=== PATIENT | female | born 2000 | race Caucasian/White ===

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

== ENCOUNTER 2024-11-15 14:51 | Outpatient (CLI) | payer MEDICAID, SELFPAY ==
[2024-11-15 15:32] VITALS: BMI 41.0
[2024-11-15 15:35] VITALS: BP 127/64; PULSE 88
[2024-11-15 15:36] VITALS: PULSE 93; O2SAT 99
[2024-11-15 15:37] VITALS: BP 127/94; PULSE 88; RESP 16; TEMP 36.8; O2SAT 99
[2024-11-15 17:16] LABS: Mucous, Urine 0 SEEN /hpf (<or=2+)
[2024-11-15 17:18] LABS: Absolute Lymphocyte Count 2.83 X10^3/uL (0.83-4.51); Absolute Neutrophil Count 7.4 X10^3/uL (2.0-7.7); Basophil# 0.04 X10^3/uL; Basophil% 0.4 % (0-1); Eosinophil# 0.16 X10^3/uL; Eosinophils% 1.4 % (0-5); Hematocrit 32.4 % (37-47); Hemoglobin 10.8 g/dL (12.0-15.0); Lymphocyte # 2.83 X10^3/ul (0.83-4.51); Lymphocyte % 25.5 % (19-41); Mean Corp Hgb Conc 33.3 g/dL (32-36); Mean Corpuscular Hgb 30.8 pg (27.0-32.0); Mean Corpuscular Volume 92.3 fL (81-99); Mean Platelet Vol. 9.9 fl (6.2-12.0); Monocyte# 0.59 X10^3/uL; Monocyte% 5.3 % (0-10); NRBC Flagged by Analyzer 0 % (0-5); Neutrophil # 7.37 X10^3/uL (2.7-7.7); Neutrophil % 66.6 % (47-70); Platelet Count 229 K/mm3 (150-450); RBC Distribution Width CV 11.9 % (11.6-14.6); RBC Distribution Width SD 40.1 fl (35.1-43.9); Red Blood Count 3.51 M/mm3 (4.2-5.4); White Blood Count 11.1 K/mm3 (4.4-11.0)
[2024-11-15 17:20] LABS: Color, Urine Yellow (Yellow); Glucose, Dipstick Normal (Normal); Ketone-Dipstick Negative (Negative); Leukocyte Esterase-Dipstick 25 /ul (Negative); Nitrite-Dipstick Negative (Negative); Occult Blood-Urine Negative /ul (Negative); Protein-Dipstick Negative (Negative); Specific Gravity, Urine 1.015 (1.002-1.030); Urine Bilirubin Dipstick Negative (Negative); Urine Clarity Clear (Clear); Urine Urobilinogen Normal (Normal); Urine pH 6.5 (5.0 - 8.0)
[2024-11-15 17:40] LABS: Protein, Urine (Random) 7.9 mg/dL (<11.9); Protein:Creat Ratio 154 mg/g CRE (0-200)
[2024-11-15 17:43] LABS: AST(SGOT) 16 U/L (15-37); Alanine Aminotransfer ALT/SGPT 20 U/L (13-56); Creatinine, Serum 0.43 mg/dL (0.55-1.02); EST Glomerular Filtration Rate 192 mL/min (>60); Est Glom Filt Rate - Afr Amer 233 mL/min (>60); Uric Acid 3.4 mg/dL (2.6-6.0)
[2024-11-15 18:22] LABS: Bacteria 1+ /hpf (None Seen); Red Blood Cells-Urine 0 SEEN /hpf (0-5); Squamous Epithelial Cells - UA 0-5 SEEN /hpf (5-10); White Blood Cells 0-5 SEEN /hpf (0-5)
--- NOTE | 2024-11-17 09:35 | OB.TRI.HP_ITS ---
HPI - General General Date of Admission: 11/15/24 Date of Service: 11/15/24 Chief Complaint: 23+ week IUP with Abdominal Discomfort HPI Narrative MAIRA IRWIN, is a 24 F at who presents to Labor and delivery with decreased movement and some upper abdominal discomfort. She takes omperazole for indigestion. She sees Dr. Frank in [place] for her care. She reportedly is staying at [facility] recently. PFSH PFSH Home Medications ?Medication ?Instructions ?Recorded ?Last Taken ?Type omeprazole 20 mg capsule,delayed 20 mg PO DAILY 11/15/24 History release vitamins-iron fumarate 65 1 tab PO DAILY preg nisa 11/15/24 11/15/24 History mg iron-folic acid 1 mg tablet ([facility]) Allergy/AdvReac Type Severity Reaction Status Date / Time No Known Allergies Allergy Verified 11/15/24 15:28 Social History Smoking Status: Never smoker NST FHR Rate Baby A NST Reactive:: Appropriate for gestational age Uterine Activity:: No uterine contractions noted Assessment & Plan (1) Decreased movement during : PLAN: 23+ week IUP with some decreased movement and upper abdominal discomfort. FHTs present and no evidence of labor. Abdominal pain minimal and improved while on L and D. PIH labs checked and normal; no PIH symptoms. UA negative except fo some Leuk esterase. Urine culture pending. Encouraged hydration, continuing omperazole and instructed to f/u with her OB on 11/16/24.
== END 2024-11-15 18:40 | disposition home or self-care (01) ==
LOC: WPOUT 15:00 → WP 15:01
PROVIDERS: Referring Provider Obstetrics & Gynecology; Visit Provider Obstetrics & Gynecology
DX: O36.8120 Decreased fetal movements, second trimester, not applicable or unspecified (principal); Z79.899 Other long term (current) drug therapy; Z3A.23 23 weeks gestation of pregnancy
CPT/HCPCS: 36415; 59025; 59050; 81001; 82565; 82570; 84156; 84450; 84460; 84550; 85025; 87086; 87088; 99221; G0378

== ENCOUNTER 2024-11-27 02:22 | Emergency (ER) | payer MEDICAID, SELFPAY ==
[2024-11-27 02:23] VITALS: BP 138/77; PULSE 112; RESP 18; TEMP 36.5; O2SAT 99; BMI 43.0
[2024-11-27 03:05] LABS: Absolute Neutrophil Count 10.1 X10^3/uL (2.0-7.7); Basophil# 0.04 X10^3/uL; Basophil% 0.3 % (0-1); Eosinophil# 0.12 X10^3/uL; Eosinophils% 0.8 % (0-5); Hematocrit 35.4 % (37-47); Hemoglobin 11.6 g/dL (12.0-15.0); Lymphocyte % 19.1 % (19-41); Mean Corp Hgb Conc 32.8 g/dL (32-36); Mean Corpuscular Volume 91.5 fL (81-99); Mean Platelet Vol. 9.9 fl (6.2-12.0); Monocyte# 1.03 X10^3/uL; Monocyte% 7.3 % (0-10); NRBC Flagged by Analyzer 0 % (0-5); Neutrophil # 10.14 X10^3/uL (2.7-7.7); Neutrophil % 71.7 % (47-70); Platelet Count 263 K/mm3 (150-450); RBC Distribution Width CV 11.9 % (11.6-14.6); RBC Distribution Width SD 39.7 fl (35.1-43.9); Red Blood Count 3.87 M/mm3 (4.2-5.4); White Blood Count 14.1 K/mm3 (4.4-11.0)
[2024-11-27] MEDS: 0.9% Normal Saline (1000mL) 1,000 ML 999 ML IV (03:05)
[2024-11-27] MEDS: Ondansetron 4 MG/2 ML Vial IV (03:05)
[2024-11-27] MEDS: Famotidine 200 MG/20 ML MDV 20 MG in 0.9% Normal Saline (Pres. free 8 ML 300 MG IV (03:05)
[2024-11-27 03:11] LABS: Color, Urine Yellow (Yellow); Glucose, Dipstick Normal (Normal); Ketone-Dipstick Negative (Negative); Leukocyte Esterase-Dipstick 100 /ul (Negative); Nitrite-Dipstick Negative (Negative); Occult Blood-Urine Negative /ul (Negative); Protein-Dipstick 15 mg/dl (Negative); Urine Bilirubin Dipstick Negative (Negative); Urine Clarity Clear (Clear); Urine Urobilinogen Normal (Normal)
[2024-11-27 03:23] LABS: Bacteria 2+ /hpf (None Seen); Red Blood Cells-Urine 0 SEEN /hpf (0-5); Squamous Epithelial Cells - UA 25-50 SEEN /hpf (5-10); White Blood Cells 5-10 SEEN /hpf (0-5)
[2024-11-27 03:24] LABS: Lipase 22 U/L (13-75)
[2024-11-27 03:24] LABS: Mucous, Urine 0 SEEN /hpf (<or=2+)
[2024-11-27 03:32] LABS: AST(SGOT) 17 U/L (<=31); Alanine Aminotransfer ALT/SGPT 13 U/L (<=34); Albumin, Serum 3.5 g/dL (3.5-5.0); Alkaline Phosphatase 70 U/L (35-104); Anion Gap 11 (5-15); BUN 15 mg/dL (4-19); BUN/Creat Ratio 30.8 RATIO (10-20); Bilirubin, Direct < 0.08 mg/dL (0.00-0.30); Calcium 8.7 mg/dL (7.6-11.0); Carbon Dioxide 21.4 mmol/L (22.0-29.0); Chloride 103 mmol/L (96-108); Creatinine, Serum 0.49 mg/dL (0.70-1.20); EST Glomerular Filtration Rate 135 (>60); Estimated Creatinine Clearance 242.59 ml/min (50-250); Glucose 135 mg/dL (70-99); Protein, Total 6.5 g/dL (5.9-8.4); Sodium Level 135 mmol/L (133-145); Total Bilirubin < 0.15 mg/dL (0.00-1.30)
[2024-11-27 04:22] VITALS: BP 122/78; PULSE 81; RESP 16; O2SAT 99
--- NOTE | 2024-11-27 04:35 | ED.VIS.GI ---
HPI HPI - GI History of Present Illness Chief Complaint: Abd Pain Informant: patient Narrative Narrative: 25 weeks gestation [address] by Dr[address] Frank in [place] presenting with nausea vomiting last few hours no hematemesis. Epigastric pain. No diarrhea. No sick contacts. No fever or chills. No urinary symptoms. She reports no complications during this . She is on omeprazole. 2 weeks ago was evaluated for pain in the triage for a few hours. Denies any allergies. Prior similar symptoms: Yes PFSH PFSH Home Medications ?Medication ?Instructions ?Recorded ?Last Taken ?Type omeprazole 20 mg capsule,delayed 20 mg PO DAILY 11/15/24 11/15/24 History release vitamins-iron fumarate 65 1 tab PO DAILY 11/15/24 11/15/24 History mg iron-folic acid 1 mg tablet ([facility]) ondansetron 4 mg disintegrating 4 mg PO Q8H PRN PRN Nausea #10 tabs 11/27/24 Unknown Rx tablet Allergy/AdvReac Type Severity Reaction Status Date / Time No Known Allergies Allergy Verified 11/27/24 02:23 Social History Smoking Status: Never smoker ROS ROS ED Constitutional Constitutional ED: Denies chills, fever(s) or sweats ENT ENT ED: Denies sore throat Cardiovascular Cardiovascular: Denies chest pain, leg edema, palpitations or racing heartbeat Respiratory/Chest Respiratory/Chest: Denies cough, dyspnea or dyspnea on exertion Gastrointestinal Gastrointestinal: Reports abdominal pain, nausea and vomiting; Denies diarrhea Genitourinary Genitourinary ED: Denies dysuria, hematuria or urinary frequency Musculoskeletal Musculoskeletal: Denies back pain, extremity pain or neck pain Integumentary Denies rash or wounds Neurologic Neurologic: Denies headache(s), paresthesias or weakness EXAM Physical Exam Const Vital Signs: 11/27/24 02:23 11/27/24 04:22 11/27/24 05:29 Temperature 97.7 F L 97.8 F Temperature Source Oral Pulse Rate 112 H 81 80 Respiratory Rate 18 16 16 Blood Pressure 138/77 H 122/78 H 118/74 Blood Pressure Mean 97 92 88 Pulse Ox 99 99 99 Positive well nourished and well developed General Appearance ED: well developed and NAD HEENT Reports moist mucous membranes normocephalic and atraumatic Eyes General Eye ED: Yes normal appearance of both eyes Neck full ROM Chest Wall Chest: Negative for tenderness Resp normal respiratory effort and normal air movement Effort and Inspection: symmetric chest movement; Negative for respiratory distress Cardio regular rate, regular rhythm and no murmurs Peripheral Pulses: pulses 2+ throughout GI GI Narrative: Gravid abdomen with epigastric tenderness. Negative Leigh's or McBurney's tenderness. Palpation: Negative for guarding or rebound tenderness present Extremity normal to inspection General Extremety ED: Negative for edema or tenderness General Extremity: Negative for edema Neuro oriented x3 and no sensory deficits noted Sensorium / Orientation: awake and alert Skin no rashes or lesions noted and no wounds MDM MDM MDM Narrative Medical decision making narrative: Interventions / MDM: Differential diagnosis: Gastritis, nausea vomiting, second trimester Diagnosis considered but do not suspect: N/A My EKG interpretation: N/A Imaging independently reviewed and interpreted by myself: N/A External documents reviewed: N/A Test considered but not ordered:N/A ED course: Acute nausea vomiting epigastric tenderness. No hematemesis. IV established for fluids. Abdominal labs ordered. IV Pepcid Zofran for symptom control. 0435: Bedside ultrasound heart tones at 120 with fluid and movement. Gallbladder ultrasound no gross stones noted. Laboratory studies white count 14 normal lipase and liver enzymes. Clinically improved symptoms. Will p.o. challenge. She is on omeprazole. Will give prescription for Zofran to use as needed. Re-evaluation: stable Disposition discussed with patient/family/significant other: Patient Case discussed with consulting clinician: N/A This note was generated with [employer] dictation software. It may contain incorrect words, spelling, and punctuation that were not noted in checking the note before signing. Lab Data Labs: Laboratory Results - last 24 hr 11/27/24 11/27/24 02:28 03:03 WBC 14.1 H RBC 3.87 L Hgb 11.6 L Hct 35.4 L MCV 91.5 MCH 30.0 MCHC 32.8 RDW Std Deviation 39.7 RDW Coeff of Felipe 11.9 Plt Count 263 MPV 9.9 Immature Gran % (Auto) 0.800 Neut % (Auto) 71.7 H Lymph % (Auto) 19.1 [place] % (Auto) 7.3 Eos % (Auto) 0.8 Baso % (Auto) 0.3 Absolute Neuts (auto) 10.1 H Absolute Lymphs (auto) 2.70 Nucleated RBC % 0 Sodium 135 Potassium 4.0 Chloride Direct 103 Carbon Dioxide 21.4 L Anion Gap 11 BUN 15 Creatinine 0.49 L Estim Creat Clear Calc 242.59 Est GFR (MDRD) Non-Af 135 BUN/Creatinine Ratio 30.8 H Glucose 135 H Calcium 8.7 Total Bilirubin < 0.15 Direct Bilirubin < 0.08 AST 17 ALT 13 Alkaline Phosphatase 70 Total Protein 6.5 Albumin 3.5 Globulin 3.0 Lipase 22 Urine Color Yellow Urine Clarity Clear Urine pH 6.0 Ur Specific [place] 1.020 Urine Protein 15 H Urine Glucose (UA) Normal Urine Ketones Negative Urine Occult Blood Negative Urine Nitrite Negative Urine Bilirubin Negative Urine Urobilinogen Normal Ur Leukocyte Esterase 100 H Urine RBC 0 SEEN Urine WBC 5-10 SEEN Ur Squamous Epith Cells 25-50 SEEN Urine Bacteria 2+ Urine Mucus 0 SEEN Discharge Plan Triage Chief Complaint: Abd Pain ED Provider: Usama Dominguez Dx/Rx/DC Orders Clinical Impression: Gastritis, Second trimester , Nausea & vomiting Instructions: 2nd Trimester Changes, ED Gastritis (Adult) Prescriptions: New ondansetron 4 mg tablet,disintegrating 4 mg PO Q8H PRN PRN (Reason: Nausea) Qty: 10 0RF No Action Mynatal Plus 65 mg iron- 1 mg tablet 1 tab PO DAILY omeprazole 20 mg capsule,delayed release(DR/EC) 20 mg PO DAILY Primary Care Provider: Care Physician,No Primary Referrals: Care Physician,No Primary [Primary Care Provider] - Activity Restrictions/Additional Instructions: heart tones 120. Labs stable. Continue omeprazole. Use Zofran as needed continue oral fluids for hydration. Follow-up with your OB Dr. Frank. Print Language: Estonian Disposition Disposition: Home, Self Care Discharge Date/Time: 11/27/24 05:30
[2024-11-27 05:29] VITALS: BP 118/74; PULSE 80; RESP 16; TEMP 36.6; O2SAT 99
== END 2024-11-27 05:30 | disposition home or self-care (01) ==
PROVIDERS: Emergency Provider Emergency Medicine; Visit Provider Emergency Medicine
DX: O99.612 Diseases of the digestive system complicating pregnancy, second trimester (principal); O21.9 Vomiting of pregnancy, unspecified; K29.70 Gastritis, unspecified, without bleeding; Z79.899 Other long term (current) drug therapy; Z3A.25 25 weeks gestation of pregnancy
CPT/HCPCS: 80048; 80076; 81001; 83690; 85025; 96361; 96374; 96375; 99285; A4216; J2405